=== PATIENT | female | born 1935 | race Caucasian/White ===

== ENCOUNTER 2016-12-16 13:22 | Emergency (ER) | payer OTHER ==
[2016-12-16 13:29] VITALS: TEMP 97.5
--- NOTE | 2016-12-16 15:20 | EDPHY ---
H & P Stated Complaint: RLQ pain since 11am Time Seen by Provider: 12/16/16 15:00 HPI/ROS: CHIEF COMPLAINT: RLQ pain HISTORY OF PRESENT ILLNESS: The patient is an 81 y/o female with a history of diabetes complaining of acute onset right lower quadrant pain that began while bowling about 4 hours prior to arrival. She was able to finish the game and drove herself home. Once she arrived home the pain was severe with any movement. The pain has improved and is now a 6/10. She denies back pain, fever , hip pain, difficulty walking, dysuria, hematuria, polyuria, nausea, vomiting, diarrhea, cough, or other symptoms. Last PO intake 07:30 today. REVIEW OF SYSTEMS: Constitutional: No fever, no chills Eyes: No visual changes ENT: No sore throat Respiratory: No cough, no shortness of breath Cardiac: No chest pain Gastrointestinal: No nausea, no vomiting, +abdominal pain Genitourinary: No hematuria, no dysuria Musculoskeletal: No leg pain or swelling Skin: No rash Neurological: No headache, no numbness, no weakness Psychiatric: No depression - Personal History Current Tetanus Diphtheria and Acellular Pertussis (TDAP): Yes - Medical/Surgical History PMH: PMH includes: Diabetes type 2 - not on medication Hx Asthma: No Hx Chronic Respiratory Disease: No Hx Diabetes: Yes Hx Cardiac Disease: No Hx Renal Disease: No Hx Cirrhosis: No Hx Alcoholism: No Hx HIV/AIDS: No Hx Splenectomy or Spleen Trauma: No Other PMH: DM 2. HTN. - Social History Smoking Status: Never smoked Additional Social History: , in February, nonsmoker - Physical Exam Exam: General Appearance: Alert, pleasant, well-appearing Eyes: Pupils equal and round, no conjunctival pallor or injection ENT, Mouth: Mucous membranes moist Neck: Normal inspection Respiratory: Lungs are clear to auscultation Cardiovascular: Regular rate and rhythm Gastrointestinal: Abdomen is soft, RLQ tenderness Back: Right CVA tenderness Neurological: A&O, nonfocal, normal gait Skin: Warm and dry, no rash Extremities: Nontender, no pedal edema Psychiatric: Mood and affect normal Constitutional: Initial Vital Signs Temperature (C) 36.4 C 12/16/16 13:25 Heart Rate 63 12/16/16 13:25 Respiratory Rate 18 12/16/16 13:25 Blood Pressure 194/118 H 12/16/16 13:25 O2 Sat (%) 93 12/16/16 13:25 O2 Delivery Mode Room Air Allergies/Adverse Reactions: No Known Allergies Allergy (Unverified 12/16/16 13:30) Home Medications: Medication Instructions Recorded Inderal 10mg (*) 12/16/16 Medical Decision Making - Diagnostics Imaging Results: Imaging Impressions Abdomen/Pelvis CT 12/16/16 15:01 Impression: 1. No hydronephrosis or ureteral calculi. 2. Normal appendix. 3. Mild constipation. 4. No localized intra-abdominal inflammatory process. 5. Nicely repaired ventral abdominal wall hernia. Findings discussed with Emergency Department physician, Ana Mna on 2016, 15:35. Attention: This CT examination is specifically designed to evaluate patients who are clinically suspected of having acute obstructive uropathy. This examination does not use radiographic contrast, and as such, provides only a limited evaluation of the abdomen, pelvis and retroperitoneum. If there is further clinical suspicion for pathological conditions other than obstructive uropathy, a complete CT evaluation of the abdomen and pelvis utilizing intravenous, oral, and rectal contrast should be considered. Imaging: Discussed imaging studies w/ call center manager Radiologist, I viewed and interpreted images myself ED Course/Re-evaluation: This is an 81 y/o female who presents with acute onset RLQ pain that began while bowling. She has RLQ tenderness on palpation that is also reproducible with movement. She has no urinary symptoms and is afebrile here. Her symptoms are consistent with a muscle strain from her activity today, but plan for abdominal CT to rule out acute appendicitis or other intraabdominal process. Basic labs and UA ordered. Patient's CT is unremarkable. Reassessed and discussed results with her and her son who is now at bedside. I offered Tylenol for pain, which she declined. Labs unremarkable. She has been unable to provide a urine sample here. She will be discharged with standard muscular strain care and follow up instructions. Return precautions discussed. She and her son agree with discharge plan. Differential Diagnosis: Differential diagnosis includes though it is not limited to appendicitis, cholecystitis, diverticulitis, pyelonephritis, bowel perforation, small bowel obstruction. - Data Points Laboratory Results: Laboratory Results 12/16/16 15:22 12/16/16 15:22 12/16/16 12/16/16 15:22 15:22 WBC 9.27 10^3/uL 10^3/uL (3.80-9.50) RBC 4.90 10^6/uL 10^6/uL (4.18-5.33) Hgb 15.4 g/dL g/dL (12.6-16.3) Hct 44.8 % % (38.0-47.0) MCV 91.4 fL fL (81.5-99.8) MCH 31.4 pg pg (27.9-34.1) MCHC 34.4 g/dL g/dL (32.4-36.7) RDW 13.1 % % (11.5-15.2) Plt Count 318 10^3/uL 10^3/uL (150-400) MPV 9.4 fL fL (8.7-11.7) Neut % (Auto) 75.2 % H % (39.3-74.2) Lymph % (Auto) 16.3 % % (15.0-45.0) [place] % (Auto) 6.5 % % (4.5-13.0) Eos % (Auto) 1.1 % % (0.6-7.6) Baso % (Auto) 0.5 % % (0.3-1.7) Nucleat RBC Rel Count 0.0 % % (0.0-0.2) Absolute Neuts (auto) 6.97 10^3/uL H 10^3/uL (1.70-6.50) Absolute Lymphs (auto) 1.51 10^3/uL 10^3/uL (1.00-3.00) Absolute Monos (auto) 0.60 10^3/uL 10^3/uL (0.30-0.80) Absolute Eos (auto) 0.10 10^3/uL 10^3/uL (0.03-0.40) Absolute Basos (auto) 0.05 10^3/uL 10^3/uL (0.02-0.10) Absolute Nucleated RBC 0.00 10^3/uL 10^3/uL (0-0.01) Immature Gran % 0.4 % % (0.0-1.1) Immature Gran # 0.04 10^3/uL 10^3/uL (0.00-0.10) Sodium 137 mEq/L mEq/L (134-144) Potassium 4.3 mEq/L mEq/L (3.5-5.2) Chloride 99 mEq/L mEq/L (97-110) Carbon Dioxide 25 mEq/l mEq/l (22-31) Anion Gap 13 mEq/L mEq/L (8-16) BUN 25 mg/dL H mg/dL (7-23) Creatinine 1.0 mg/dL mg/dL (0.6-1.0) Estimated GFR 53 Glucose 123 mg/dL H mg/dL (70-100) Calcium 10.1 mg/dL mg/dL (8.5-10.4) Departure - Departure Disposition: Home, Routine, Self-Care Clinical Impression: RLQ abdominal pain Condition: Good Instructions: Abdominal Pain (ED) Additional Instructions: 1. Take 500mg Tylenol as needed for pain every 4-6 hours for the next few days. 2. Please follow up with your primary care provider for unimproved symptoms over the next 2-3 days. 3. Return to the ED for severe pain, uncontrollable vomiting, fever, painful urination, or other worsening of condition. Referrals: Mi Ruiz MD [Primary Care Provider] - As per Instructions Report Scribed for: Ana Man Report Scribed by: Dana Lowe Date of Report: 12/16/16 Time of Report: 15:20 Physician Review and Approval Statement: 12/16/16 15:20 Portions of this note were transcribed by a medical service technician. I personally performed a history, physical exam, medical decision making, and confirmed accuracy of information the transcribed note.
[2016-12-16 15:36] LABS: % IMMATURE GRANULYOCYTES 0.4 % (0.0-1.1); ABSOLUTE IMMATURE GRANULOCYTES 0.04 10^3/uL (0.00-0.10); ADD DIFF? NO; ADD MORPH? NO; ADD SCAN? NO; ATYPICAL LYMPHOCYTE FLAG 0 (0-99); FRAGMENT RBC FLAG 0 (0-99); HEMATOCRIT 44.8 % (38.0-47.0); HEMOGLOBIN 15.4 g/dL (12.6-16.3); LEFT SHIFT FLG 0 (0-99); LIPEMIA HEMOLYSIS FLAG 90 (0-99); MEAN CELL HEMOGLOBIN 31.4 pg (27.9-34.1); MEAN CELL HEMOGLOBIN CONCENTR. 34.4 g/dL (32.4-36.7); MEAN CELL VOLUME 91.4 fL (81.5-99.8); MEAN PLATELET VOLUME 9.4 fL (8.7-11.7); PLATELET CLUMPS FLAG 40 (0-99); PLATELET COUNT 318 10^3/uL (150-400); RED CELL DISTRIBUTION WIDTH 13.1 % (11.5-15.2)
[2016-12-16 15:42] VITALS: BP 194/100; PULSE 82; RESP 16; O2SAT 94
[2016-12-16 15:45] LABS: ANION GAP 13 mEq/L (8-16); CALCIUM 10.1 mg/dL (8.5-10.4); CARBON DIOXIDE 25 mEq/l (22-31); CHLORIDE 99 mEq/L (97-110); GLOMERULAR FILTRATION RATE 53; GLUCOSE 123 mg/dL (70-100); POTASSIUM 4.3 mEq/L (3.5-5.2); SODIUM 137 mEq/L (134-144)
== END 2016-12-16 16:07 | disposition home or self-care (01) ==
DX: R10.31 Right lower quadrant pain (principal); E11.9 Type 2 diabetes mellitus without complications; I10 Essential (primary) hypertension